=== PATIENT | male | born 1975 | race African-American/Black ===

== ENCOUNTER 2016-12-28 16:55 | Emergency (ER) | payer OTHER ==
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
[~2016-12-28 16:55] MED LIST: ACETAMINOPHEN PO; DICLOFENAC PO; FLEXERIL PO; LORTAB 10/500 T1 TAB PO; MEDROL PO; ORUDIS75 M1 DOB; ULTRAM PO
== END 2016-12-28 18:13 | disposition home or self-care (01) ==
LOC: CFTX 16:55
DX: S70.02XA Contusion of left hip, initial encounter (principal); F17.210 Nicotine dependence, cigarettes, uncomplicated; Z90.89 Acquired absence of other organs; V89.2XXA Person injured in unspecified motor-vehicle accident, traffic, initial encounter
CPT/HCPCS: 73502; 73552; 99284

== ENCOUNTER → 2017-01-16 | Outpatient (CLI) | payer OTHER ==
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
== END | disposition home or self-care (01) ==
LOC: CMRI 17:44
DX: R20.2 Paresthesia of skin (principal); M47.896 Other spondylosis, lumbar region; M51.86 Other intervertebral disc disorders, lumbar region; M51.26 Other intervertebral disc displacement, lumbar region
CPT/HCPCS: 72148

== ENCOUNTER 2017-03-24 12:46 | Emergency (ER) | payer OTHER ==
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
== END 2017-03-24 14:25 | disposition home or self-care (01) ==
LOC: CED 12:46
DX: S90.32XA Contusion of left foot, initial encounter (principal); S90.31XA Contusion of right foot, initial encounter; F17.200 Nicotine dependence, unspecified, uncomplicated; Z88.5 Allergy status to narcotic agent; W20.8XXA Other cause of strike by thrown, projected or falling object, initial encounter; Y92.39 Other specified sports and athletic area as the place of occurrence of the external cause; G89.29 Other chronic pain; Z79.899 Other long term (current) drug therapy
CPT/HCPCS: 29515; 73630; 99283